=== PATIENT | male | born 2005 | race Caucasian/White ===

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

== ENCOUNTER 2025-01-11 10:10 | Emergency (ER) | payer MEDICAID, SELFPAY ==
[2023-07-19 09:57] VITALS: BP 173/97; BMI 34.2
[2025-01-11 10:12] VITALS: BP 155/112; PULSE 92; RESP 20; TEMP 36.4; O2SAT 98
--- NOTE | 2025-01-11 10:32 | XRR_ITS ---
PROCEDURE INFORMATION: Exam: XR Chest Exam date and time: 01/11/2025 10:48 AM Age: 19 years old Clinical indication: Pain; Chest pressure; Additional info: Chest pain TECHNIQUE: Imaging protocol: Radiologic exam of the chest. Views: 1 view. COMPARISON: CT chest abdpel w/*[id number] 11/06/2023 8:49 AM FINDINGS: Tubes, catheters and devices: None. Lungs: The lungs appear clear. Pleural spaces: No pleural effusion. No pneumothorax. Heart/Mediastinum: Mediastinum and kirill appear unremarkable. Bones/joints: No acute bony abnormality identified. XR/XR chest 1V portable [id number] IMPRESSION: No evidence for an acute cardiopulmonary process.
--- NOTE | 2025-01-11 10:32 | ECG_ITS ---
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 Measurements Intervals [place] Rate: 89 P: 43 [place]: 190 QRS: 31 QRSD: 97 T: 20 QT: 351 QTc: 428 Interpretive Statements SINUS RHYTHM WITH SINUS ARRHYTHMIA No previous ECG available for comparison Electronically Signed On 01-14-2025 11:43:33 CDT by Major Milligan M.D. [email or web address]
[2025-01-11 10:39] LABS: Basophils % 0.5 %; Eosinophils # 0.1 10^3/uL (0.0-0.8); Eosinophils % 0.6 %; Hematocrit 45.9 % (37-53); Lymphocytes # 2.2 10^3/uL (1.5-6.5); Lymphocytes % 26.9 %; Mean Corpuscular HGB Conc 33.6 g/dL (30-55); Mean Corpuscular Volume 83.5 fl (82-101); Mean Platelet Volume 9.7 fL (7.4-10.4); Monocytes # 0.5 10^3/uL (0.2-0.9); Monocytes % 6.4 %; Neutrophils # 5.23 10^3/uL (1.8-8.0); Neutrophils % 65.2 %; Nucleated Red Blood Cells % 0 %; Platelet Count 265 10^3/cmm (157-399); Red Cell Distribution Width 13.5 % (12.1-15.1); White Blood Count 8.02 10^3/uL (4.5-13.0)
[2025-01-11] MEDS: ketorolac 30 mg/mL INJ IVP (10:39)
[2025-01-11 10:40] VITALS: BP 148/82; PULSE 88; O2SAT 99
[2025-01-11 10:45] LABS: Erythrocyte Sedimentation Rate < 1 mm/hr (0-10)
[2025-01-11 10:54] LABS: D Dimer <= 0.27 ug/mLFEU (0-0.59)
[2025-01-11 11:00] VITALS: BP 149/100; PULSE 78; O2SAT 95
[2025-01-11 11:03] LABS: Troponin(5th) Baseline < 6 ng/L (0-15)
[2025-01-11 11:12] LABS: Alanine Aminotransferase 41 U/L (0-41); Albumin Level 5.5 g/dL (3.5-5.2); Alkaline Phosphatase 75 U/L (40-130); Anion Gap 18.1 (5-19); Aspartate Amino Transferase 25 U/L (0-40); Blood Urea Nitrogen 13 mg/dL (6-20); Calcium 10.2 mg/dL (8.5-10.5); Carbon Dioxide 24 mmol/L (22-29); Chloride 99 mmol/L (98-107); Globulin 2.9 g/dL (1.3-4.6); Glomerular Filtration Rate 145.3 mL/min (90-130); Glucose 91 mg/dL (65-115); NT Pro B Type Natriuretic Pept < 36 pg/mL (0-125); Osmolality Calculated 284 mOsm/kg (285-295); Potassium 4.1 mmol/L (3.5-5.1); Sodium 137 mmol/L (136-145); Total Bilirubin 0.4 mg/dL (0.15-1.2); Total Protein 8.4 g/dL (6.6-8.7)
[2025-01-11 11:30] VITALS: BP 145/67; PULSE 61; O2SAT 98
--- NOTE | 2025-01-11 12:04 | W.ED.CHESTPA ---
HPI - Chest Pain General: Chief Complaint: Chest Pain Stated Complaint: chest pain Time Seen by Provider: 01/11/25 10:23 History of Present Illness: This patient is a 19-year-old white male who presents to the ER complaining of left-sided chest pain. He describes the pain as a squeezing and sharp sensation. States it started on December 23, couple of weeks ago. States has been constant for the past week. He states pushing on it seems to relieve the discomfort. He has no associated shortness of breath. Has had some nausea. He has no chronic medical problems. Past surgical history includes an appendectomy. He does vape. Related Data Previous Rx's ?Medication ?Instructions ?Recorded sucralfate 100 mg/mL oral 10 ml PO BID 6 weeks #840 mL 10/31/24 suspension baclofen 5 mg tablet 5 mg PO TID PRN muscle spasm #30 01/11/25 tabs ibuprofen 800 mg tablet 800 mg PO TID #30 tabs 01/11/25 Allergies Allergy/AdvReac Type Severity Reaction Status Date / Time cinnamon Allergy ADR-Itching Verified 10/31/24 08:48 latex Allergy ALGY-Rash Verified 10/31/24 08:48 Penicillins Allergy hives Verified 10/31/24 08:48 Sulfa (Sulfonamide Allergy hives Verified 10/31/24 08:48 Antibiotics) Review of Systems General: Reports: 10 or more systems reviewed and unremarkable except in HPI and below PFSH ED PFSH: Medical History Injury of meniscus of left knee Elevated blood pressure reading without diagnosis of hypertension Chronic back pain Chronic knee pain MDD (major depressive disorder), single episode, mild Generalized anxiety disorder with panic attacks Post-traumatic stress disorder, chronic Surgical History S/P laparoscopic appendectomy (11/03/20) Family History Mother Anesthesia complication Lung disease Psychiatric illness Grandfather CAD (coronary artery disease) Cancer Dementia Diabetes Hypertension Lung disease Psychiatric illness Stroke Grandmother CAD (coronary artery disease) Cancer Chronic kidney disease (CKD) Dementia Diabetes Hypertension Lung disease Psychiatric illness Stroke Father Psychiatric illness Social History (Reviewed 10/31/24 @ 08:43 by CYNTHIA Toscano Smoking and tobacco/nicotine status: never used tobacco/nicotine Second hand smoke exposure: Yes Alcohol intake: never Substance/Drug Use: never Adopted: No Highest education level completed: 10th Grade Education level details: currently in 11th grade Pets and animals: Yes (8 dogs and 2 cats) Pets & animals: cat(s), dog(s) and farm animals Farm Animals: chicken/turkey/other poultry Sexually active: No Do you think of yourself as: Straight/Heterosexual Current gender identity: Male Deja/Mu-Ism: Gnosticist Special deja needs: No Agree to transfusion: Yes Physical Exam Const: COMMON NORMALS: no acute distress, patient oriented x3 and no limitations GENERAL APPEARANCE: cooperative and comfortable HENMT: COMMON NORMALS: normocephalic, atraumatic, Normal nasal mucous membranes and turbinates present, moist oral mucous membranes and oropharynx normal HEAD & SCALP: normal to inspection, normocephalic and atraumatic FACE & SINUS: normal facial exam NOSE: Normal nasal mucous membranes and turbinates present Eye: COMMON NORMALS: Equal, round and reactive pupils present, EOMs intact bilaterally and conjunctivae normal GENERAL EYE: appearance normal, both eyes and all related structures CONJUNCTIVA: Yes conjunctivae normal PUPIL: Yes Equal, round and reactive pupils present Neck/C-Spine: COMMON NORMALS: supple and no JVD Chest: COMMONS NORMALS: normal inspection of the chest OTHER: Palpation along the left upper sternal border reproduces his discomfort. Resp: COMMON NORMALS: normal respiratory effort and clear to auscultation bilaterally AUSCULTATION: clear to auscultation bilaterally Cardio: COMMON NORMALS: no JVD, regular rate, regular rhythm, No gallops present (Cardio), No murmurs present (Cardio) and No rub (Cardio) RATE: regular rate RHYTHM: regular rhythm GI: COMMON NORMALS: Normal to inspection, nondistended, normoactive bowel sounds present, Soft to palpation and non-tender AUSCULTATION: Yes normoactive bowel sounds PALPATION: Yes Soft to palpation : COMMON NORMALS: Yes no CVA tenderness BLADDER/KIDNEY EXAM: Yes no CVA tenderness Back/Pelvis: COMMON NORMALS: no CVA tenderness and thoracic and lumbar spine normal to inspection Extremity: COMMON NORMALS: normal to inspection Neuro: COMMON NORMALS: patient oriented x3 and CN's II-XII intact bilaterally Psych: COMMON NORMALS: mental status grossly normal, Normal thought process present and cooperative THOUGHT PROCESS: Normal thought process present Skin: COMMON NORMALS: no rashes or lesions noted, turgor normal and no jaundice GENERAL SKIN EXAM: no rashes or lesions noted and turgor normal Course Vital Signs: Vital signs: Vital Signs Temperature 97.6 F 01/11/25 10:12 Pulse Rate 88 01/11/25 10:40 Respiratory Rate 20 H 01/11/25 10:12 Blood Pressure 148/82 01/11/25 10:40 Pulse Oximetry 99 01/11/25 10:40 Oxygen Delivery Me thod Room Air 01/11/25 10:12 MDM - Chest Pain Medical Decision Making EKG revealed normal sinus rhythm with no ST segment abnormalities. Chest x-ray was normal. CBC and CMP normal. D-dimer less than 0.27. Troponin less than 6. Sed rate less than 1. This does appear to be chest wall pain. We did give him IV Toradol. He was discharged in stable condition with prescription for ibuprofen and baclofen. Recommended he follow-up with his primary care provider next week for recheck. Lab Data 01/11/25 10:27 01/11/25 10:27 Radiology Impressions Chest X-Ray 01/11/25 10:32 IMPRESSION: No evidence for an acute cardiopulmonary process. Laboratory Results WBC 8.02 10^3/uL (4.5-13.0) 01/11/25 10:27 RBC 5.50 10^6/uL (3.85-5.65) 01/11/25 10:27 Hgb 15.40 g/dL (13.2-15.6) 01/11/25 10:27 Hct 45.9 % (37-53) 01/11/25 10:27 MCV 83.5 fl (82-101) 01/11/25 10:27 MCH 28.0 pg (27-33) 01/11/25 10:27 MCHC 33.6 g/dL (30-55) 01/11/25 10:27 RDW 13.5 % (12.1-15.1) 01/11/25 10:27 Plt Count 265 10^3/cmm (157-399) 01/11/25 10:27 MPV 9.7 fL (7.4-10.4) 01/11/25 10:27 Neut % (Auto) 65.2 % 01/11/25 10:27 Lymph % (Auto) 26.9 % 01/11/25 10:27 [place] % (Auto) 6.4 % 01/11/25 10:27 Eos % (Auto) 0.6 % 01/11/25 10:27 Baso % (Auto) 0.5 % 01/11/25 10:27 Neut # (Auto) 5.23 10^3/uL (1.8-8.0) 01/11/25 10:27 Lymph # (Auto) 2.2 10^3/uL (1.5-6.5) 01/11/25 10:27 [place] # (Auto) 0.5 10^3/uL (0.2-0.9) 01/11/25 10:27 Eos # (Auto) 0.1 10^3/uL (0.0-0.8) 01/11/25 10:27 Baso # (Auto) 0.0 10^3/uL (0.0-0.1) 01/11/25 10:27 Nucleated RBC % (auto) 0 % 01/11/25 10: Nucleated RBCs # 0.0 /100WBC 01/11/25 10:27 ESR < 1 mm/hr (0-10) 01/11/25 10:27 D-Dimer <= 0.27 ug/mLFEU (0-0.59) 01/11/25 10:27 Sodium 137 mmol/L (136-145) 01/11/25 10:27 Potassium 4.1 mmol/L (3.5-5.1) 01/11/25 10:27 Chloride 99 mmol/L (98-107) 01/11/25 10:27 Carbon Dioxide 24 mmol/L (22-29) 01/11/25 10:27 Anion Gap 18.1 (5-19) 01/11/25 10:27 BUN 13 mg/dL (6-20) 01/11/25 10:27 Creatinine 0.7 mg/dL (0.7-1.2) 01/11/25 10:27 GFR Calculation 145.3 mL/min (90-130) H 01/11/25 10:27 Glucose 91 mg/dL (65-115) 01/11/25 10:27 Calculated Osmolality 284 mOsm/kg (285-295) L 01/11/25 10:27 Calcium 10.2 mg/dL (8.5-10.5) 01/11/25 10:27 Total Bilirubin 0.4 mg/dL (0.15-1.2) 01/11/25 10:27 AST 25 U/L (0-40) 01/11/25 10:27 ALT 41 U/L (0-41) 01/11/25 10:27 Alkaline Phosphatase 75 U/L (40-130) 01/11/25 10:27 Troponin T Baseline < 6 ng/L (0-15) 01/11/25 10:27 NT-Pro-B Natriuret Pep < 36 pg/mL (0-125) 01/11/25 10:27 Total Protein 8.4 g/dL (6.6-8.7) 01/11/25 10:27 Albumin 5.5 g/dL (3.5-5.2) H 01/11/25 10:27 Globulin 2.9 g/dL (1.3-4.6) 01/11/25 10:27 All radiology interpretation(s) finalized by discharge Discharge Plan Discharge Patient Disposition: Home Clinical Impression: Chest wall pain Condition: Stable Prescriptions: New ibuprofen 800 mg tablet 800 mg PO TID Qty: 30 0RF baclofen 5 mg tablet 5 mg PO TID PRN (Reason: muscle spasm) Qty: 30 0RF No Action sucralfate 100 mg/mL suspension 10 ml PO BID 42 Days Qty: 840 0RF Discharge Orders: Discharge ED (Routine); Ordered 01/11/25 Ordered By: Adán Aly Referrals: Samuel Neumann MD [Primary Care Provider, Family Practice] Patient Instructions: Chest Wall Pain (ED) Activity Restrictions/Additional Instructions: Follow-up with your primary care provider next week for recheck. Print Language: [place] Coding Level of Care Code ED Solar Sales Representative And Assessor for Aishwarya Niño
[2025-01-11 12:14] VITALS: BP 126/75; PULSE 56; O2SAT 95
== END 2025-01-11 12:14 | disposition home or self-care (01) ==
PROVIDERS: Emergency Provider Emergency Medicine; PCP Family Medicine
DX: R07.89 Other chest pain (principal)
CPT/HCPCS: 36415; 71045; 80053; 83880; 84484; 85025; 85378; 85651; 93005; 96374; 99285; J1885

== ENCOUNTER → 2025-01-30 13:14 | Outpatient (BNVA) | payer MEDICAID, SELFPAY ==
[2023-07-19 09:57] VITALS: BP 173/97; BMI 34.2
== END ==
PROVIDERS: PCP Family Medicine; Visit Provider Orthopaedic Surgery
DX: M54.9 Dorsalgia, unspecified (principal); G89.29 Other chronic pain
CPT/HCPCS: 72110

== ENCOUNTER 2025-03-11 22:42 | Emergency (ER) | payer MEDICAID, SELFPAY ==
--- OUTSIDE RECORDS SUMMARY | 2023-06-18 19:00 | XMS_ITS | Continuity of Care Document ---
Author Organization [facility] Address [address] [place] [address] Phone Care Team Providers Care Athletic Training Internship Name Role Phone Unavailable Unavailable Unavailable Procedures Procedure Date ECHO, TT W/SPECTRAL AND COLOR DOPPLER No Advance Directives Directive Yes / No Effective Date File Name No Information Encounters Encounter Description Practice Location Reason(s) For Visit Diagnoses Date Provider Providers Copied on Encounter [facility], [address], [address], tel:[phone] [facility] OBS OUTPATIENT No Information No Information Referring Provider: JOSÉ MIGUEL DAVID, [address] [place] [address], [address]. tel:[phone] Family History Family Member Type Diagnosis Age At Onset No Information Payers Payer name Insurance type Covered democrat ID Authoriza tirebecca(s) [employer] 7A [id number] Social History Type Description Quantity Date Captured Comments Sex Male Smoking Status No Information Chief Complaint And Reason For Visit No Information History Of Present Illness Encounter Date Complaint History Of Prese nt Illness No Information Instructions Date Instruction Additional Infor mation No Information Assessments Type Assessment Date No Information
[2025-02-17 10:25] VITALS: BP 173/97; BMI 34.2
[2025-03-11 22:49] VITALS: BP 150/88; PULSE 85; RESP 16; TEMP 36.6; O2SAT 98; BMI 36.1
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
[2025-03-11 23:46] VITALS: BP 134/77; PULSE 79; O2SAT 96
[2025-03-12 00:41] VITALS: BP 143/75; PULSE 79; O2SAT 98
[2025-03-12] MEDS: HYDROcodone-acetaminophen 5-325 mg Tablet 1 TAB PO (00:49)
== END 2025-03-12 00:54 | disposition home or self-care (01) ==
PROVIDERS: Emergency Provider Physician Assistant; PCP Family Medicine
DX: S70.11XA Contusion of right thigh, initial encounter (principal); F17.290 Nicotine dependence, other tobacco product, uncomplicated; V09.9XXA Pedestrian injured in unspecified transport accident, initial encounter
CPT/HCPCS: 73552; 73560; 73590; 99283; J9999

== ENCOUNTER 2025-03-15 20:03 | Emergency (ER) | payer MEDICAID, SELFPAY ==
--- OUTSIDE RECORDS SUMMARY | 2023-06-18 19:00 | XMS_ITS | Continuity of Care Document ---
[facility] Organization [facility] Address [address] [place] [address] Phone Care Team Providers Care Front Loader Residential Driver Name Role Phone Unavailable Unavailable Unavailable Procedures Procedure Date ECHO, TT W/SPECTRAL AND COLOR DOPPLER No Advance Directives Directive Yes / No Effective Date File Name No Information Encounters Encounter Description Practice Location Reason(s) For Visit Diagnoses Date Provider Providers Copied on Encounter [facility], [address], [address], tel:[phone] [facility] OBS OUTPATIENT No Information No Information Referring Provider: JOSÉ MIGUEL DAVID, [address] [place] [address], [id number]. tel:[phone] Family History Family Member Type Diagnosis Age At Onset No Information Payers Payer name Insurance type Covered democrat ID Authoriza tirebecca(s) [employer] 7A [id number] Social History Type Description Quantity Date Captured Comments Sex Male Smoking Status No Information Chief Complaint And Reason For Visit No Information History Of Present Illness Encounter Date Complaint History Of Prese nt Illness No Information Instructions Date Instruction Additional Infor mation No Information Assessments Type Assessment Date No Information
[2025-02-17 10:25] VITALS: BP 173/97; BMI 34.2
--- OUTSIDE RECORDS SUMMARY | 2025-03-15 20:10 | XMS_ITS | Clinical Summary ---
Author Organization [facility] Address [address] [place] [address] Phone Care Team Providers Care Wood Shingle Roofer Name Role Phone Terence Luna MD, Edy Pryor Primary Care Provider Allergies Active Allergy Reactions Criticality Noted Date Comments Penicillins Hives High 12/27/2009 Medications gentamicin (GARAMYCIN) 0.3 % solution Administer 1 Drop in right eye 4 times daily. 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 Gender Identity Not on file Sexual Orientation Not on file Occupation Industry Job Start Date Job End Date Not on file Not on file Not on file Not on file Not on file Not on file Not on file Not on file Last Filed Vital Signs Vital Sign Reading Time Taken Comments Blood Pressure 93/50 06/17/2014 8:49 PM HOSPITAL SCIENTIST Pulse 107 06/06/2013 10:41 PM CDT Temperature 37.3 C (99.2 F) 06/17/2014 8:49 PM HOSPITAL SCIENTIST Respiratory Rate 22 06/17/2014 8:49 PM HOSPITAL SCIENTIST Oxygen Saturation 96% 06/17/2014 8:49 PM HOSPITAL SCIENTIST Inhaled Oxygen Concentration - - Weight 38.1 kg (84 lb) 06/17/2014 7:46 PM HOSPITAL SCIENTIST Height 134.6 cm (4' 5 ) 06/17/2014 7:46 PM HOSPITAL SCIENTIST Body Mass Index 21.02 06/17/2014 7:46 PM HOSPITAL SCIENTIST Body Mass Index Percentile 95.10% 06/17/2014 7:4 6 PM HOSPITAL SCIENTIST Growth Chart: CDC (Boys, 2-2 0 Years) Plan of Treatment Health Maintenance Due Date Last Done Comments CHLAMYDIA SCREENING (ANNUAL) 11-24 YEARS 2016 HPV VACCINES (1 - Male 3-dose series) 2020 DTAP/TDAP/TD VACCINES (1 - Tdap) 2024 HEPATITIS B VACCINES (1 of 3 - 19+ 3-dose series) 07/15 INFLUENZA VACCINE (#1) 2025 Insurance MEDICAID [place] Care Teams Wood Shingle Roofer Relationship Specialty Start Date End Date Edy Pratt Jr., MD [address] [id number] PCP - General Family Practice 06/06/13
[2025-03-15 20:25] VITALS: BP 156/106; PULSE 76; RESP 17; TEMP 36.8; O2SAT 97; BMI 36.4
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
[2025-03-15 20:57] LABS: Hematocrit 40.6 % (37-53); Hemoglobin 13.50 g/dL (13.2-15.6); Mean Corpuscular HGB Conc 33.3 g/dL (30-55); Mean Corpuscular Hemoglobin 27.9 pg (27-33); Mean Corpuscular Volume 83.9 fl (82-101); Nucleated Red Blood Cells % 0 %; Platelet Count 234 10^3/cmm (157-399); Red Blood Count 4.84 10^6/uL (3.85-5.65); White Blood Count 7.57 10^3/uL (4.5-13.0)
[2025-03-15 21:00] VITALS: BP 146/79; PULSE 87; O2SAT 99
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
[2025-03-15 21:20] LABS: Alanine Aminotransferase 34 U/L (0-41); Albumin Level 4.8 g/dL (3.5-5.2); Alkaline Phosphatase 65 U/L (40-130); Anion Gap 15.2 (5-19); Aspartate Amino Transferase 20 U/L (0-40); Blood Urea Nitrogen 21 mg/dL (6-20); Calcium 9.4 mg/dL (8.5-10.5); Carbon Dioxide 27 mmol/L (22-29); Chloride 103 mmol/L (98-107); Creatinine Clr Calc Pharmacy 178.0089; Globulin 2.6 g/dL (1.3-4.6); Glucose 92 mg/dL (65-115); Osmolality Calculated 295 mOsm/kg (285-295); Potassium 4.2 mmol/L (3.5-5.1); Sodium 141 mmol/L (136-145); Total Protein 7.4 g/dL (6.6-8.7)
[2025-03-15] MEDS: iohexol 350 mg/mL 500 mL Btl (per mL) IV (21:22)
[2025-03-15 21:30] VITALS: BP 132/75; PULSE 83; O2SAT 96
[2025-03-15 22:00] VITALS: BP 134/72; PULSE 79; O2SAT 97
[2025-03-15] MEDS: HYDROcodone-acetaminophen 7.5-325 mg Tablet 2 TAB PO (23:38)
[2025-03-16 00:17] VITALS: BP 124/70; PULSE 79; O2SAT 97
== END 2025-03-16 00:18 | disposition home or self-care (01) ==
PROVIDERS: Emergency Provider Physician Assistant; PCP Family Medicine
DX: S80.11XD Contusion of right lower leg, subsequent encounter (principal); F17.290 Nicotine dependence, other tobacco product, uncomplicated; V09.9XXD Pedestrian injured in unspecified transport accident, subsequent encounter
CPT/HCPCS: 36415; 73701; 80053; 85025; 99285; J9999

== ENCOUNTER 2025-03-22 20:38 | Emergency (ER) | payer MEDICAID, SELFPAY ==
--- OUTSIDE RECORDS SUMMARY | 2023-06-18 19:00 | XMS_ITS | Continuity of Care Document ---
[facility] [address] [place] [address] Phone Care Team Providers Care Farmer Cash Grain Name Role Phone Unavailable Unavailable Unavailable Procedures Procedure Date ECHO, TT W/SPECTRAL AND COLOR DOPPLER No Advance Directives Directive Yes / No Effective Date File Name No Information Encounters Encounter Description Practice Location Reason(s) For Visit Diagnoses Date Provider Providers [facility]ied on [facility], [address], [address], tel:[phone] [facility] OBS OUTPATIENT No Information No Information Referring Provider: JOSÉ MIGUEL DAVID, [address] [place] [address], [id number]. tel:[phone] Family History Family Member Type Diagnosis Age At Onset No Information Payers Payer name Insurance type Covered democrat ID Authoriza tirebecca(s) [employer] 7A [id number] Social History Type Description Quantity Date Captured Comments Sex Male Smoking Status No Information Chief Complaint And Reason For Visit No Information History Of Present Illness Encounter Date Complaint History Of Prese nt Illness No Information Instructions Date Instruction Additional Infor mation No Information Assessments Type Assessment Date No Information
[2025-02-17 10:25] VITALS: BP 173/97; BMI 34.2
[2025-03-22 20:40] VITALS: BP 143/88; PULSE 88; RESP 16; TEMP 36.4; O2SAT 97
--- OUTSIDE RECORDS SUMMARY | 2025-03-22 20:43 | XMS_ITS | Clinical Summary ---
Author Organization 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 Gender Identity Not on file Sexual Orientation Not on file Occupation Industry Job Start Date Job End Date Not on file Not on file Not on file Not on file Not on file Not on file Not on file Not on file Last Filed Vital Signs Vital Sign Reading Time Taken Comments Blood Pressure 93/50 06/17/2014 8:49 PM RIGGING LOFT REPAIRER Pulse 107 06/06/2013 10:41 PM CDT Temperature 37.3 C (99.2 F) 06/17/2014 8:49 PM 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 LOFT REPAIRER Respiratory Rate 22 06/17/2014 8:49 PM RIGGING LOFT REPAIRER Oxygen Saturation 96% 06/17/2014 8:49 PM RIGGING LOFT REPAIRER Inhaled Oxygen Concentration - - Weight 38.1 kg (84 lb) 06/17/2014 7:46 PM RIGGING LOFT REPAIRER Height 134.6 cm (4' 5 ) 06/17/2014 7:46 PM RIGGING LOFT REPAIRER Body Mass Index 21.02 06/17/2014 7:46 PM RIGGING LOFT REPAIRER Body Mass Index Percentile 95.10% 06/17/2014 7:4 6 PM RIGGING LOFT REPAIRER Growth Chart: CDC (Boys, 2-2 0 Years) Plan of Treatment Health Maintenance Due Date Last Done Comments CHLAMYDIA SCREENING (ANNUAL) 11-24 YEARS 2016 HPV VACCINES (1 - Male 3-dose series) 2020 DTAP/TDAP/TD VACCINES (1 - Tdap) 2024 HEPATITIS B VACCINES (1 of 3 - 19+ 3-dose series) 07/15 INFLUENZA VACCINE (#1) 2025 Insurance MEDICAID [place] Care Teams Lift Truck Mechanic Relationship Specialty Start Date End Date Edy Pratt Jr., MD [address] [address] PCP - General Family Practice 06/06/13
[2025-03-22 22:00] VITALS: BP 118/54; PULSE 64; O2SAT 96
[2025-03-22 23:00] VITALS: BP 123/66; PULSE 69; O2SAT 96
[2025-03-23] VITALS: BP 117/68; PULSE 77; O2SAT 97
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
[2025-03-23 00:42] VITALS: RESP 18; O2SAT 96
[2025-03-23] MEDS: oxyCODONE-APAP 5-325 mg Tablet 2 TAB PO (00:42)
[2025-03-23 00:50] VITALS: BP 138/66; PULSE 67; O2SAT 98
== END 2025-03-23 00:50 | disposition home or self-care (01) ==
PROVIDERS: Emergency Provider Emergency Medicine; PCP Family Medicine
DX: S70.11XA Contusion of right thigh, initial encounter (principal); F17.290 Nicotine dependence, other tobacco product, uncomplicated; Z88.0 Allergy status to penicillin; Z88.2 Allergy status to sulfonamides; Z91.040 Latex allergy status; Z91.09 Other allergy status, other than to drugs and biological substances; W23.0XXA Caught, crushed, jammed, or pinched between moving objects, initial encounter
CPT/HCPCS: 99283; J9999

== ENCOUNTER 2025-03-28 06:57 | Outpatient (CLI) | payer MEDICAID, SELFPAY ==
[2025-02-17 10:25] VITALS: BP 173/97; BMI 34.2
--- NOTE | 2025-03-28 07:15 | MR_ITS ---
WS: [id number] MRI RIGHT FEMUR WITHOUT CONTRAST. COMPARISON: CT 03/15/2025 Multiplanar, multisequence imaging is performed without contrast. There is a large fluid collection with a few internal signal abnormalities extending along the medial RIGHT femur. This collection begins in the mid thigh subcutaneous soft tissues and extends over a length of 18.7 cm. Collection extends just below the knee joint. Transverse diameter 4.2 and anterior p osterior 9.3 cm. Internal echoes and scattered debris consistent with a hematoma. Signal within the adjacent muscles is normal. This hematoma is subcutaneous and external to the fascia. There is mass effect upon the fascia. There is mild mass effect upon the vastus medialis muscle and biceps femoris. There is increased fluid and variable signal in the mid LEFT femoral vein. Femoral vein is enlarged.. There is a small amount of edema around the anterior knee which is not encapsulated. MR/MR femur RT wo con* [id number] IMPRESSION: 1. Large subcutaneous hematoma along the medial RIGHT thigh measures 18.7 cm i n length. Transverse diameter 4.2 and anteroposterior diameter 9.3 cm of the he matoma. 2. RIGHT thigh hematoma with slight mass effect upon the vastus medialis muscl e and the biceps femoris muscle. No edema within the muscle groups. 3. Variable signal and enlargement of the mid femoral vein. Recommend follow-u p femoral vein ultrasound to evaluate for DVT. Notified Judson Jorgensen DO at 03/28/2025 8:57 AM. Message left on answering servi ce with the orthopedic and spine clinic.
== END 2025-03-28 06:58 | disposition home or self-care (01) ==
LOC: RAD 06:57
PROVIDERS: PCP Family Medicine; Visit Provider Orthopaedic Surgery
DX: R22.41 Localized swelling, mass and lump, right lower limb (principal); S70.11XA Contusion of right thigh, initial encounter; X58.XXXA Exposure to other specified factors, initial encounter
CPT/HCPCS: 73718

== ENCOUNTER 2025-06-19 16:04 | Emergency (ER) | payer MEDICAID, SELFPAY ==
[2025-04-07 10:51] VITALS: BP 173/97; BMI 34.2
[2025-06-19 16:08] VITALS: BP 163/79; PULSE 72; RESP 17; TEMP 36.3; O2SAT 99; BMI 35.2
[2025-06-19] MEDS: tetracaine 0.5% Op Soln 4 mL Btl 1 DROP EYE-RIGHT (17:16)
[2025-06-19 17:18] VITALS: O2SAT 100
--- NOTE | 2025-06-19 17:32 | W.ED.EYEPROB ---
HPI - Eye Problem General: Chief complaint: Eye Problems Stated complaint: R Eye something in it (Metal) Time Seen by Provider: 06/19/25 17:04 Source: patient Mode of arrival: ambulatory Limitations: no limitations History of Present Illness: Patient is an adwpbuemshb-rsoe-djo male who presents to ED today with a concern of a piece of metal to his right eye. Patient states he noticed pain today after working/grinding with metal. He tried to irrigate the eye at home without success. No visual changes or visual loss. Tetanus is up-to-date. MD chief complaint: eye pain and foreign body Onset (ago): hour(s) Onset description: sudden Duration: constant Location: right eye Eye Symptoms: foreign body sensation Place: home Mechanism: occurred while hammering/grinding Severity: mild Associated symptoms: Reports no associated symptoms Treatments Prior to Arrival: irrigated eye Related Data Previous Rx's ?Medication ?Instructions ?Recorded baclofen 5 mg tablet 5 mg PO TID PRN muscle spasm #30 01/11/25 tabs ibuprofen 800 mg tablet 800 mg PO TID #30 tabs 01/11/25 methocarbamol 500 mg tablet 500 mg PO Q8H PRN muscle spasm #30 03/12/25 tabs hydrocodone 7.5 mg-acetaminophen 1 tab PO Q8H PRN pain #15 tabs 03/23/25 325 mg tablet ibuprofen 800 mg tablet 800 mg PO Q8H PRN pain #30 tabs 03/23/25 Allergies Allergy/AdvReac Type Severity Reaction Status Date / Time cinnamon Allergy ADR-Itching Verified 04/07/25 10:38 latex Allergy ALGY-Rash Verified 04/07/25 10:38 Penicillins Allergy hives Verified 04/07/25 10:38 Sulfa (Sulfonamide Allergy hives Verified 04/07/25 10:38 Antibiotics) Review of Systems Eyes: Reports: other (Foreign body sensation right eye); Denies: change in vision, blurry vision, blind spots, photophobia, floaters or seeing flashes [facility] ED PFSH: Medical History Injury of meniscus of left knee Elevated blood pressure reading without diagnosis of hypertension Chronic back pain Chronic knee pain MDD (major depressive disorder), single episode, mild Generalized anxiety disorder with panic attacks Post-traumatic stress disorder, chronic Surgical History S/P laparoscopic appendectomy (11/03/20) Family History Mother Anesthesia complication Lung disease Psychiatric illness Grandfather CAD (coronary artery disease) Cancer Dementia Diabetes Hypertension Lung disease Psychiatric illness Stroke Grandmother CAD (coronary artery disease) Cancer Chronic kidney disease (CKD) Dementia Diabetes Hypertension Lung disease Psychiatric illness Stroke Father Psychiatric illness Social History Smoking and tobacco/nicotine status: current every day tobacco/nicotine user (vape) Second hand smoke exposure: Yes Alcohol intake: never Substance/Drug Use: never Adopted: No Highest education level completed: 10th Grade Education level details: currently in 11th grade Pets and animals: Yes (8 dogs and 2 cats) Pets & animals: cat(s), dog(s) and farm animals Farm Animals: chicken/turkey/other poultry Sexually active: No Do you think of yourself as: Straight/Heterosexual Current gender identity: Male Deja/Quaker: Pentecostal Special deja needs: No Agree to transfusion: Yes Physical Exam Const: COMMON NORMALS: no acute distress, average body habitus, no limitations, healthy appearing, alert and well nourished GENERAL APPEARANCE: cooperative Eye: COMMON NORMALS: Equal, round and reactive pupils present and EOMs intact bilaterally GENERAL EYE: normal light reflex VISUAL ACUITY: Yes acuity normal PUPIL: Yes Equal, round and reactive pupils present DIRECT OPHTHALMOSCOPY: Yes normal light reflex EYE IMAGES:  1. Small kev of round metal-easily removed with a moist Q-tip Neuro: SENSORIUM/ORIENTATION: Yes alert Procedures FB Removal Eye Location: eye (R) Topical anesthetic used: tetracaine Foreign body: metal Evidence of corneal penetration: No Technique: cotton tip swab Procedure performed under: direct visualization with magnification Post-procedure medication: ophthalmic antibiotic Patient tolerated procedure: well Course Vital Signs: Vital signs: Vital Signs Temperature 97.4 F L 06/19/25 16:08 Pulse Rate 72 06/19/25 16:08 Respiratory Rate 17 06/19/25 16:08 Blood Pressure 163/79 06/19/25 16:08 Pulse Oximetry 100 06/19/25 17:18 Oxygen Delivery Me thod Room Air 06/19/25 17:18 MDM - Eye Problem Medical Decision Making Metal was removed without difficulty. No rust ring present. Patient will be discharged with erythromycin ointment. Return to ED precautions discussed. Differential Diagnosis Likely corneal abrasion, conjunctivitis and subconjunctival hemorrhage Medical Records I reviewed the patient's medical records. No radiology studies performed this visit Discharge Plan Discharge Patient Disposition: Home Clinical Impression: Foreign body in cornea, right eye, initial encounter Condition: Stable Prescriptions: No Action methocarbamol 500 mg tablet 500 mg PO Q8H PRN (Reason: muscle spasm) Qty: 30 0RF hydrocodone-acetaminophen 7.5-325 mg tablet 1 tab PO Q8H PRN (Reason: pain) Qty: 15 0RF ibuprofen 800 mg tablet 800 mg PO Q8H PRN (Reason: pain) Qty: 30 0RF ibuprofen 800 mg tablet 800 mg PO TID Qty: 30 0RF baclofen 5 mg tablet 5 mg PO TID PRN (Reason: muscle spasm) Qty: 30 0RF Discharge Orders: Discharge ED (Routine); Ordered 06/19/25 Ordered By: Kaylene Link Referrals: Balaji Cano MD [Primary Care Provider, Family Practice] Patient Instructions: Eye Foreign Body (ED), Patient Portal & José Miguel Instructions Activity Restrictions/Additional Instructions: As we discussed, corneal metal foreign body was removed. Use the erythromycin ointment 4 times daily over the next 5 days. Return to the emergency department or follow-up with ophthalmology for continued pain/discomfort past 2 to 3 days, visual changes, eye discharge, or any other concerns you may have. Print Language: Kinyarwanda Coding Level of Care Code ED Printing Machine Operator Tape Rules for Aishwarya Niño
[2025-06-19] MEDS: erythromycin Op Oint 1 gm 1 APPLIC EYE-RIGHT (17:45)
== END 2025-06-19 17:45 | disposition home or self-care (01) ==
PROVIDERS: Emergency Provider Physician Assistant; PCP Family Medicine
DX: T15.01XA Foreign body in cornea, right eye, initial encounter (principal); F17.290 Nicotine dependence, other tobacco product, uncomplicated; W44.E9XA Other non-magnetic metal objects entering into or through a natural orifice, initial encounter
CPT/HCPCS: 99283; J9999

== ENCOUNTER 2025-07-28 18:58 | Emergency (ER) | payer MEDICAID, SELFPAY ==
[2025-04-07 10:51] VITALS: BP 173/97; BMI 34.2
[2025-07-28 19:16] VITALS: BP 157/96; PULSE 70; RESP 18; TEMP 36.3; O2SAT 98; BMI 33.2
[2025-07-28 19:30] VITALS: BP 139/82; PULSE 76; O2SAT 93
--- NOTE | 2025-07-28 19:32 | CTR_ITS ---
PROCEDURE INFORMATION: Exam: CT Head Without Contrast Exam date and time: 07/28/2025 7:41 PM Age: 19 years old Clinical indication: Injury or trauma; Additional info: Face trauma, dizzy, blurry vision TECHNIQUE: Imaging protocol: Computed tomography of the head without contrast. Radiation optimization: All CT scans at this facility use at least one of these dose optimization techniques: automated exposure control; mA and/or kV adjustment per patient size (includes targeted exams where dose is matched to clinical indication); or iterative reconstruction. COMPARISON: CT head wo con* [id number] 11/06/2023 8:49 AM RADIATION DOSE METRICS: Total DLP (mGy-cm): 1096.8 FINDINGS: Brain: No hemorrhage. No edema, mass effect or midline shift. Cerebral ventricles: No ventriculomegaly. Paranasal sinuses: Visualized sinuses are unremarkable. No fluid levels. Mastoid air cells: No mastoid effusion. Bones: Unremarkable. No acute fracture. Soft tissues: Unremarkable. CT/CT head wo con* [id number] IMPRESSION: No acute intracranial abnormality.
--- NOTE | 2025-07-28 19:32 | CTR_ITS ---
PROCEDURE INFORMATION: Exam: CT Maxillofacial Without Contrast Exam date and time: 07/28/2025 7:41 PM Age: 19 years old Clinical indication: Injury or trauma; Additional info: Right cheek/infraorbital trauma TECHNIQUE: Imaging protocol: Computed tomography of the face without contrast. Radiation optimization: All CT scans at this facility use at least one of these dose optimization techniques: automated exposure control; mA and/or kV adjustment per patient size (includes targeted exams where dose is matched to clinical indication); or iterative reconstruction. COMPARISON: CT head wo con* [id number] 11/06/2023 8:49 AM RADIATION DOSE METRICS: Total DLP (mGy-cm): 617.4 FINDINGS: Paranasal sinuses: No air-fluid levels. Paranasal sinus mucosal thickening. Orbital cavities: Posttraumatic right infraorbital soft tissue edema. Bones: No acute fracture. Soft tissues: Unremarkable. CT/CT facial bones wo con* [id number] IMPRESSION: Posttraumatic right infraorbital soft tissue edema. No acute facial fracture.
--- OUTSIDE RECORDS SUMMARY | 2025-07-28 19:34 | XMS_ITS | Clinical Summary ---
Author Organization [facility] Address [address] [place] [address] Phone Care Team Providers Care Oiler And Greaser Name Role Phone Terence Luna MD, Edy [...] on file Legal Sex Male 11:02 AM CAREER COUNSELOR Gender Identity Not on file Sexual Orientation Not on file Occupation Industry Job Start Date Job End Date Not on file Not on file Not on file Not on file Not on file Not on file Not on file Not on file Last Filed Vital Signs Vital Sign Reading Time Taken Comments Blood Pressure 93/50 06/17/2014 8:49 PM CAREER COUNSELOR Pulse 107 06/06/2013 10:41 PM CDT Temperature 37.3 C (99.2 F) 06/17/2014 8:49 PM CAREER COUNSELOR Respiratory Rate 22 06/17/2014 8:49 PM CAREER COUNSELOR Oxygen Saturation 96% 06/17/2014 8:49 PM CAREER COUNSELOR Inhaled Oxygen Concentration - - Weight 38.1 kg (84 lb) 06/17/2014 7:46 PM CAREER COUNSELOR Height 134.6 cm (4' 5 ) 06/17/2014 7:46 PM CAREER COUNSELOR Body Mass Index 21.02 06/17/2014 7:46 PM CAREER COUNSELOR Body Mass Index Percentile 95.10% 06/17/2014 7:4 6 PM CAREER COUNSELOR Growth Chart: CDC (Boys, 2-2 0 Years) Plan of Treatment Health Maintenance Due Date Last Done Comments CHLAMYDIA SCREENING (ANNUAL) 11-24 YEARS 2016 HPV VACCINES (1 - Male 3-dose series) 2020 DTAP/TDAP/TD VACCINES (1 - Tdap) 2024 HEPATITIS B VACCINES (1 of 3 - 19+ 3-dose series) 07/15 INFLUENZA VACCINE (#1) 2025 Insurance MEDICAID [place] Care Teams Oiler And Greaser Relationship Specialty Start Date End Date Edy Pratt Jr., MD [address] [id number] PCP - General Family Practice 06/06/13
--- NOTE | 2025-07-28 19:36 | ED_ITS ---
HPI - Wound/Laceration General: Chief Complaint: Wound/Laceration Stated Complaint: Face Injury Time Seen by Provider: 07/28/25 19:22 Source: patient Mode of arrival: ambulatory Limitations: no limitations History of Present Illness: Patient is a 19-year-old male who presents the emergency department after a facial injury occurred this morning. States that he was using a drill, it had rebounded and struck him just below the eye causing small laceration. He states he put glue on it, there is no active bleeding arrival but he has been feeling dizzy and has had off balance with walking. He did not lose consciousness when he was hit in the eye, is not having any visual changes and no other focal neurological deficit at this time, but he is concerned of facial fracture due to the pain periorbitally. He has no other symptoms at this time, unsure of last tetanus. Onset (ago): hour(s) Location: face Associated symptoms: Denies chills, fever(s), nausea or vomiting Related Data Previous Rx's ?Medication ?Instructions ?Recorded baclofen 5 mg tablet 5 mg PO TID PRN muscle spasm #30 01/11/25 tabs ibuprofen 800 mg tablet 800 mg PO TID #30 tabs 01/11 methocarbamol 500 mg tablet 500 mg PO Q8H PRN muscle s pasm #30 03/12/25 tabs hydrocodone 7.5 mg-acetaminophen 1 tab PO Q8H PRN pain #15 tabs 03/23/25 325 mg tablet ibuprofen 800 mg tablet 800 mg PO Q8H PRN pain #30 t abs 03/23/25 mupirocin 2 % topical ointment 1 applic topical DAILY #15 grams 07/28/25 Allergies Allergy/AdvReac Type Severity Reaction Status Date / Time cinnamon Allergy ADR-Itching Verified 07/22/25 13:10 latex Allergy ALGY-Rash Verified 07/22/25 13:10 Penicillins Allergy hives Verified 07/22/25 13:10 Sulfa (Sulfonamide Allergy hives Verified 07/22/25 13:10 Antibiotics) Review of Systems General: Reports: 10 or more systems reviewed and unremarkable except in HPI and below Const: Denies: fever(s) or chills Card: Denies: chest pain Resp: Denies: dyspnea GI: Denies: abdominal pain, nausea, vomiting or diarrhea Musc: Denies: extremity pain or joint pain Skin/Breast: Reports: new lesions (Right cheek); Denies: rash Neuro: Reports: difficulty walking and dizziness; Denies: headache(s), numbness in extremities, weakness in extremities, confusion, behavioral changes or seizure-like activity [facility] ED PFSH: Medical History Injury of meniscus of left knee Elevated blood pressure reading without diagnosis of hypertension Chronic back pain Chronic knee pain MDD (major depressive disorder), single episode, mild Generalized anxiety disorder with panic attacks Post-traumatic stress disorder, chronic Surgical History S/P laparoscopic appendectomy (11/03/20) Family History Mother Anesthesia complication Lung disease Psychiatric illness Grandfather CAD (coronary artery disease) Cancer Dementia Diabetes Hypertension Lung disease Psychiatric illness Stroke Grandmother CAD (coronary artery disease) Cancer Chronic kidney disease (CKD) Dementia Diabetes Hypertension Lung disease Psychiatric illness Stroke Father Psychiatric illness Social History Smoking and tobacco/nicotine status: current every day tobacco/nicotine user (vape) Second hand smoke exposure: Yes Alcohol intake: never Substance/Drug Use: never Adopted: No Highest education level completed: 10th Grade Education level details: currently in 11th grade Pets and animals: Yes (8 dogs and 2 cats) Pets & animals: cat(s), dog(s) and farm animals Farm Animals: chicken/turkey/other poultry Sexually active: No Do you think of yourself as: Straight/Heterosexual Current gender identity: Male Deja/Yazdanism: Baptist Special deja needs: No Agree to transfusion: Yes Physical Exam Const: COMMON NORMALS: no acute distress, average body habitus, patient oriented x3, no limitations, healthy appearing, alert and well nourished HENMT: COMMON NORMALS: normocephalic and atraumatic HEAD & SCALP: normocephalic and atraumatic FACE & SINUS: ecchymosis on the right periorbital and Facial tenderness on exam of face and sinuses on the right periorbital OTHER: Small 1 cm superficial laceration under right eye with no active bleeding. Neck/C-Spine: COMMON NORMALS: full ROM, no lymphadenopathy, supple and no meningeal signs OTHER: No C-spine tenderness to palpation Resp: COMMON NORMALS: normal respiratory effort, No use of accessory muscles and clear to auscultation bilaterally AUSCULTATION: clear to auscultation bilaterally Cardio: COMMON NORMALS: regular rate and regular rhythm RATE: regular rate RHYTHM: regular rhythm Extremity: COMMON NORMALS: full ROM and capillary refill normal Neuro: COMMON NORMALS: patient oriented x3, CN's II-XII intact bilaterally, moves all extremities, no focal motor deficits and no sensory deficits noted SENSORIUM/ORIENTATION: Yes alert MENINGEAL SIGNS: Yes no meningeal signs Skin: COMMON NORMALS: no rashes or lesions noted, no wounds and turgor normal GENERAL SKIN EXAM: no rashes or lesions noted and turgor normal Course Vital Signs: Vital signs: Vital Signs Temperature 97.3 F L 07/28/25 19:16 Pulse Rate 75 07/28/25 19:55 Respiratory Rate 18 07/28/25 19:16 Blood Pressure 140/86 07/28/25 19:55 Pulse Oximetry 94 07/28/25 19:55 Oxygen Delivery Me thod Room Air 07/28/25 19:55 Oxygen Flow Rate 4 07/28/25 19:50 MDM - Wound/Laceration Medical Decision Making Patient accidentally struck his face earlier today with the back of a drill, causing small laceration to right cheek. He had noted dizziness and increasing difficulty walking worsening throughout the day, he did not lose consciousness and has had no other focal neurological deficits. The exam was unremarkable aside from a small laceration of which did not require any procedural closure. His tetanus is updated today, bacitracin will be provided to cover for any prophylaxis for staph. CT scanning of the face and head does not reveal any acute findings. Allowed discharge home. Lab Data Radiology Impressions Face CT 07/28/25 19:32 IMPRESSION: Posttraumatic right infraorbital soft tissue edema. No acute facial fracture. Head CT 07/28/25 19:32 IMPRESSION: No acute intracranial abnormality. All radiology interpretation(s) finalized by discharge Discharge Plan Discharge Patient Disposition: Home Clinical Impression: Contusion of periorbital region, right Qualifiers: Encounter type: initial encounter Qualified Code(s): S05.11XA - Contusion of eyeball and orbital tissues, right eye, initial encounter Laceration of cheek, right Qualifiers: Encounter type: initial encounter Qualified Code(s): S01.411A - Laceration without foreign body of right cheek and temporomandibular area, initial encounter Condition: Stable Prescriptions: New mupirocin 2 % ointment 1 applic topical DAILY Qty: 15 0RF No Action methocarbamol 500 mg tablet 500 mg PO Q8H PRN (Reason: muscle spasm) Qty: 30 0RF hydrocodone-acetaminophen 7.5-325 mg tablet 1 tab PO Q8H PRN (Reason: pain) Qty: 15 0RF ibuprofen 800 mg tablet 800 mg PO Q8H PRN (Reason: pain) Qty: 30 0RF ibuprofen 800 mg tablet 800 mg PO TID Qty: 30 0RF baclofen 5 mg tablet 5 mg PO TID PRN (Reason: muscle spasm) Qty: 30 0RF Discharge Orders: Discharge ED (Routine); Ordered 07/28/25 Ordered By: Kimo Salmeron Referrals: Bal[facility] MD [facility] Patient Instructions: Patient Portal & [facility] Miguel Instructions Activity Restrictions/Additional Instructions: Discharge Instructions Your Diagnosis: - Superficial laceration (cut) to the right infraorbital region (below the right eye) - Contusion (bruise) to the right periorbital region (around the right eye) - CT scans of your head and facial bones showed no fractures or internal injuries Wound Care Instructions: Cleaning the wound: - Keep the wound clean and dry for the first 24-48 hours. - After 48 hours, you may gently wash the area with mild soap and water, but do not scrub or soak the wound. - Pat the area dry with a clean towel. Applying medication: - Apply a thin layer of bacitracin ointment to the wound 2-3 times daily. - This helps prevent infection and keeps the wound moist for better healing. - Continue using the ointment until the wound is fully healed. Dressing: - Cover the wound with a clean, non-stick bandage for the first 24-48 hours. - After this time, you may leave it uncovered if it stays clean. - Change the bandage daily or if it becomes wet or dirty. Managing swelling and bruising: - Keep your head elevated, especially when sleeping, to reduce swelling. - Apply a cold compress (wrapped in a clean cloth) to the bruised area for 15-20 minutes at a time, several times a day for the first 2-3 days. - The bruising around your eye may worsen before it improves and may take 1-2 weeks to fully resolve. Watch for signs of infection: Contact your doctor immediately if you notice any of the following: - Increasing redness around the wound - Warmth or heat at the wound site - Increased swelling - Pus or drainage from the wound - Fever over 100.4?F (38?C) - Increasing pain Activity: - Avoid strenuous activities, heavy lifting, or bending over for the next few days to minimize swelling. - Avoid activities that could result in trauma to the face. Follow-up: - Schedule a follow-up appointment with your primary care doctor or the clinic in 3-5 days to check wound healing. - If you develop any concerning symptoms before your scheduled appointment, seek medical attention sooner. Additional Important Information: - Do not apply alcohol, hydrogen peroxide, or iodine directly to the wound, as these can delay healing. - Protect the healing wound from sun exposure for several months to minimize scarring. - If you have any questions or concerns about your wound, do not hesitate to call your doctor. When to Seek Emergency Care: Go to the emergency department or call 911 if you experience: - Vision changes or loss of vision - Severe headache - Confusion or difficulty staying awake - Persistent vomiting - Clear fluid draining from your nose or ears - Seizures - Weakness or numbness in your face, arms, or legs Print Language: Swedish Coding Level of Care Code ED Consulting Manager for Aishwarya Niño
[2025-07-28 19:50] VITALS: PULSE 72; O2SAT 94
[2025-07-28] MEDS: tetanus-dipt-pertussis 0.5 mL SDV IM (19:53)
[2025-07-28 19:55] VITALS: BP 140/86; PULSE 75; O2SAT 94
[2025-07-28] MEDS: bacitracin ointment Pkt 1 EACH TOPICAL (20:37)
[2025-07-28 20:39] VITALS: BP 140/86; PULSE 76; O2SAT 93
== END 2025-07-28 20:43 | disposition home or self-care (01) ==
PROVIDERS: Emergency Provider Physician Assistant; PCP Family Medicine
DX: S05.11XA Contusion of eyeball and orbital tissues, right eye, initial encounter (principal); S01.411A Laceration without foreign body of right cheek and temporomandibular area, initial encounter; F17.290 Nicotine dependence, other tobacco product, uncomplicated; W22.8XXA Striking against or struck by other objects, initial encounter
CPT/HCPCS: 70450; 70486; 90471; 90715; 99284; J9999